=== PATIENT | female | born 1980 | race African-American/Black ===

== ENCOUNTER 2020-04-15 13:55 | Emergency (ER) | payer MEDICAID ==
[~2020-04-15] VITALS: Ht 167.6 cm; Wt 87.0 kg
[2020-04-15 14:04] VITALS: BP 137/90
[2020-04-15] MEDS ORDERED: AMLO5TAB88 PO (14:06)
== END 2020-04-15 14:57 | disposition left against medical advice (07) ==
LOC: ER 14:22
DX: R06.02 Shortness of breath (principal); Z53.21 Procedure and treatment not carried out due to patient leaving prior to being seen by health care provider